=== PATIENT | male | born 1940 | race Caucasian/White ===

== ENCOUNTER → 2020-06-09 | Outpatient (CLI) | payer MEDICARE | END | disposition home or self-care (01) | LOC: CFH 07:32 | PROVIDERS: ATTEND Internal Medicine Clinical Cardiac Electrophysiology | DX: I08.8 Other rheumatic multiple valve diseases (principal); I25.9 Chronic ischemic heart disease, unspecified; I25.5 Ischemic cardiomyopathy | CPT/HCPCS: 93306; 93356 ==